=== PATIENT | male | born 1960 | race Two or more races ===

== ENCOUNTER 2022-12-20 08:22 | Day surgery (SDC) | payer OTHER ==
[~2022-12-20] VITALS: Ht 175.3 cm; Wt 87.1 kg
[~2022-12-20 08:22] MED LIST: ATORVASTATIN CA10 MG PO; LASIX20 MG PO; LOSARTAN POTASS50 MG PO; NORVASC5 MG PO
[2022-12-20] MEDS ORDERED: CEPHALEXIN500 MG PO (15:31)
[2022-12-20] MEDS ORDERED: CILOXAN5 ML OTIC (15:32)
== END 2022-12-20 18:10 | disposition home or self-care (01) ==
LOC: CIR.AMB 08:22
PROVIDERS: ATTEND Otolaryngology Otology & Neurotology
DX: H74.21 Discontinuity and dislocation of right ear ossicles (principal); H90.A11 Conductive hearing loss, unilateral, right ear with restricted hearing on the contralateral side; H72.11 Attic perforation of tympanic membrane, right ear; Z20.822 Contact with and (suspected) exposure to COVID-19; I10 Essential (primary) hypertension